=== PATIENT | male | born 1960 | race Two or more races ===

== ENCOUNTER 2017-11-22 10:00 | Outpatient (AMBR) | payer MEDICAID, SELFPAY ==
--- NOTE | 2017-11-12 14:10 | PT.ODAYNRPT ---
PT Outpatient Daily Note Date of Service: November 12, 2017 OP Daily Note Visit Reasons: left knee Outpatient Physical Therapy Treatment Date: 11/12/17 Subjective: pt reported follow up with and he states pt is ok to go back to work. Objective: see flow sheet. Assessment: changed FWD kunges to walking lunges inside the PB in which pt did well with good posture. added wall sits against the wall and pt did fatigue but maintain good posture for back and legs. no medial collapse noted nor instability of the knee and ankles during exercises. pt had no complaints post ther ex and refused ice pack. advised pt to use ice pack if needed. Plan: continue POC per PT. Length of Time (minutes) of Treatment: 30 Minutes Office Procedures PT Procedures PT Date of Service: 11/12/17 Therapeutic Exercise 30 minutes: Yes
--- NOTE | 2017-11-22 11:53 | PT.ODS1RPT ---
PT OP Progress/Discharge Note Date of Service: November 22, 2017 Progress Note/DC Note Progress Note/Discharge Note: DC Note Patient Information Pediatric or Adult Patient: Adult PT >13 Visit Reasons: left knee Admission Reason: L knee arthroscopy Treatment Dx #1: Muscle weakness Service Continue Service or Discharge: Discharge Physical Therapy Outpatient Service Dates: From: / To:: 10/14/2017 11/22/2017 Discharge Date: 11/22/17 Plan Frequency and Duration: Status Subjective: no new complaints Assessment: Tinetti score of 28/28 = low fall risk TUG test is 10.02 = low fall risk Ms strength on LLE = 5/5 grossly graded. Plan: patient will be dc from skilled PT services secondary to goals achieved. Patient is back to work. He had no complains of pain on the L knee. Patient was seen today by Annie TREVIÑO. Treatment Provided This POC: Thera ex Goals Achieved: Increase ms strength on LLE to 5/5 Patient is I with HEP No complains of pain on the L knee. Discharge Comment: Patient will be dc from skilled PT services secondary to goals achieved. Office Procedures PT Procedures PT Date of Service: 11/12/17 Therapeutic Exercise 30 minutes: Yes
== END 2017-12-10 23:59 | disposition home or self-care (01) ==
PROVIDERS: PCP Physician Assistant; Referring Provider Physician Assistant; Visit Provider Orthopaedic Surgery
DX: M62.81 Muscle weakness (generalized) (principal); Z98.890 Other specified postprocedural states
CPT/HCPCS: 97110